=== PATIENT | female | born 1965 | race Caucasian/White ===

== ENCOUNTER 2017-06-29 16:14 | Emergency (ER) | payer OTHER ==
[2017-06-29] MEDS ORDERED: Lactated Ringers 1,000 ML IV ONE (16:40)
--- NOTE | 2017-06-29 16:54 | EDM.PDOC ---
ED HPI GENERAL MEDICAL PROBLEM - General Chief Complaint: Abdominal Pain Stated Complaint: SENT FROM [facility] Time Seen by Provider: 06/29/17 16:39 Source of Information: Reports: Patient History Limitations: Reports: No Limitations - History of Present Illness INITIAL COMMENTS - FREE TEXT/NARRATIVE: 51-year-old female presents for evaluation and treatment of her lower quadrant abdominal pain. Patient reports that the abdominal pain woke her from sleep this morning around 0400. Patient reports that the pain as a dull aching sensation that comes in waves. Currently the pain as a 5 out of 10. She reports associated symptoms of nausea and decreased appetite. Last intake was around 1300, she had half of a pop tart. Patient did drive herself to the ER. She states that movement seems to make the pain worse. She denies any fevers, dysuria, hematuria, vomiting or diarrhea. She states that she is burping more than normal. Not as much flatus is normal. Last bowel movement was this morning. Reports it was looser than normal. Previous abdominal surgeries include a cholecystectomy. Patient reports she does not have a normal menstrual cycle. She ablation done about 10 years ago. Onset: Today Location: Reports: Abdomen Quality: Reports: Dull Severity: Moderate (5/10) Right Abdominal Pain Score (Numeric/FACES): 5 - Related Data Allergies Allergy/AdvReac Type Severity Reaction Status Date / Time seasonal Allergy Hives Uncoded 06/29/17 16:21 Home Meds: Home Meds . [No Known Home Meds] 06/29/17 [History] Past Medical History Respiratory History: Reports: Asthma Social & Family History - Tobacco Use Smoking Status *Q: Never Smoker ED ROS GENERAL - Review of Systems Review Of Systems: See Below Constitutional: Reports: Decreased Appetite. Denies: Fever GI/Abdominal: Reports: Abdominal Pain (RLQ), Decreased Appetite, Nausea. Denies : Vomiting : Reports: No Symptoms. Denies: Dysuria, Hematuria ED EXAM, GI/ABD - Physical Exam Exam: See Below Exam Limited By: No Limitations General Appearance: Alert, WD/WN, No Apparent Distress Ears: Normal External Exam Nose: Normal Inspection Throat/Mouth: Normal Inspection, Normal Voice, No Airway Compromise Neck: Normal Inspection Respiratory/Chest: No Respiratory Distress, Lungs Clear, Normal Breath Sounds Cardiovascular: Normal Peripheral Pulses, Regular Rate, Rhythm, No Murmur GI/Abdominal Exam: Normal Bowel Sounds, Soft, Tender (RLQ, slightly inferior to [place]urn[place] point), Other (- psosas and obturator signs). No: Guarding, Rigid, Rebound Neurological: Alert, Oriented, Normal Cognition Psychiatric: Normal Affect, Normal Mood Skin Exam: Warm, Dry, Normal Color Course - Vital Signs Last Recorded V/S: Last Vital Signs Temp 36.7 C 06/29/17 16:22 Pulse 56 L 06/29/17 16:22 Resp 16 06/29/17 16:22 BP 119/76 06/29/17 16:22 Pulse Ox 100 06/29/17 16:22 - Orders/Labs/Meds Orders: Active Orders 24 hr Category Date Time Status Peripheral IV Care [RC] . DIRECTED Care 06/29/17 16:40 Active Peripheral IV Insertion Adult [OM.PC] Routine Oth 06/29/17 16:40 Ordered Labs: Laboratory Tests 06/29/17 06/29/17 06/29/17 Range/Units 17:00 17:00 17:00 WBC 8.39 (3.98-10.04) K/mm3 RBC 4.19 (3.98-5.22) M/mm3 Hgb 13.2 (11.2-15.7) gm/L Hct 38.6 (34.1-44.9) % MCV 92.1 (79.4-94.8) fl MCH 31.5 (25.6-32.2) pg MCHC 34.2 (32.2-35.5) g/dl RDW Std Deviation 41.6 (36.4-46.3) fL Plt Count 234 (182-369) K/mm3 MPV 9.2 L (9.4-12.3) fl Neutrophils % (Manual) 68 H (40-60) % Band Neutrophils % 0 (0-10) % Lymphocytes % (Manual) 24 (20-40) % Atypical Lymphs % 0 % Monocytes % (Manual) 8 (2-10) % Eosinophils % (Manual) 0 L (0.7-5.8) % Basophils % (Manual) 0 L (0.1-1.2) Platelet Estimate Adequate Plt Morphology Comment Normal RBC Morph Comment Normal Sodium 140 (136-145) mEq/L Potassium 4.1 (3.5-5.1) mEq/L Chloride 106 (98-107) mEq/L Carbon Dioxide 26 (21-32) mEq/L Anion Gap 12.1 (5-15) BUN 12 (7-18) mg/dL Creatinine 0.9 (0.55-1.02) mg/dL Est Cr Clr Drug Dosing 65.29 mL/min Estimated GFR (MDRD) > 60 (>60) mL/min BUN/Creatinine Ratio 13.3 L (14-18) Glucose 105 (74-106) mg/dL Calcium 8.8 (8.5-10.1) mg/dL Total Bilirubin 0.4 (0.2-1.0) mg/dL AST 15 (15-37) U/L ALT 22 (14-59) U/L Alkaline Phosphatase 49 (46-116) U/L C-Reactive Protein < 0.2 (<1.0) mg/dL Total Protein 6.6 (6.4-8.2) g/dl Albumin 3.6 (3.4-5.0) g/dl Globulin 3.0 gm/dL Albumin/Globulin Ratio 1.2 (1-2) HCG, Qual Negative (NEGATIVE) Urine Color (Yellow) Urine Appearance (Clear) Urine pH (5.0-8.0) Ur Specific [place] (1.005-1.030) Urine Protein (Negative) Urine Glucose (UA) (Negative) Urine Ketones (Negative) Urine Occult Blood (Negative) Urine Nitrite (Negative) Urine Bilirubin (Negative) Urine Urobilinogen (0.2-1.0) Ur Leukocyte Esterase (Negative) Urine RBC (0-5) /hpf Urine WBC (0-5) /hpf Ur Epithelial Cells (0-5) /hpf Urine Bacteria (FEW) /hpf Urine Mucus (FEW) /hpf 06/29/17 Range/Units 17:10 WBC (3.98-10.04) K/mm3 RBC (3.98-5.22) M/mm3 Hgb (11.2-15.7) gm/L Hct (34.1-44.9) % MCV (79.4-94.8) fl MCH (25.6-32.2) pg MCHC (32.2-35.5) g/dl RDW Std Deviation (36.4-46.3) fL Plt Count (182-369) K/mm3 MPV (9.4-12.3) fl Neutrophils % (Manual) (40-60) % Band Neutrophils % (0-10) % Lymphocytes % (Manual) (20-40) % Atypical Lymphs % % Monocytes % (Manual) (2-10) % Eosinophils % (Manual) (0.7-5.8) % Basophils % (Manual) (0.1-1.2) Platelet Estimate Plt Morphology Comment RBC Morph Comment Sodium (136-145) mEq/L Potassium (3.5-5.1) mEq/L Chloride (98-107) mEq/L Carbon Dioxide (21-32) mEq/L Anion Gap (5-15) BUN (7-18) mg/dL Creatinine (0.55-1.02) mg/dL Est Cr Clr Drug Dosing mL/min Estimated GFR (MDRD) (>60) mL/min BUN/Creatinine Ratio (14-18) Glucose (74-106) mg/dL Calcium (8.5-10.1) mg/dL Total Bilirubin (0.2-1.0) mg/dL AST (15-37) U/L ALT (14-59) U/L Alkaline Phosphatase (46-116) U/L C-Reactive Protein (<1.0) mg/dL Total Protein (6.4-8.2) g/dl Albumin (3.4-5.0) g/dl Globulin gm/dL Albumin/Globulin Ratio (1-2) HCG, Qual (NEGATIVE) Urine Color Light yellow (Yellow) Urine Appearance Clear (Clear) Urine pH 7.0 (5.0-8.0) Ur Specific [place] 1.015 (1.005-1.030) Urine Protein Negative (Negative) Urine Glucose (UA) Negative (Negative) Urine Ketones Negative (Negative) Urine Occult Blood Negative (Negative) Urine Nitrite Negative (Negative) Urine Bilirubin Negative (Negative) Urine Urobilinogen 0.2 (0.2-1.0) Ur Leukocyte Esterase Negative (Negative) Urine RBC 0-5 (0-5) /hpf Urine WBC 0-5 (0-5) /hpf Ur Epithelial Cells 0-5 (0-5) /hpf Urine Bacteria Few (FEW) /hpf Urine Mucus Not seen (FEW) /hpf Meds: Medications Discontinued Medications Generic Name Dose Route Start Last Admin Trade Name Freq PRN Reason Stop Dose Admin Diatrizoate Meglum/Diatrizoate Sod 90 ml 06/29/17 18:27 06/29/17 18:39 Gastrografin 37% PO 06/29/17 18:28 90 ml ONETIME ONE Administration Lactated Ringer's 1,000 mls @ 999 mls/hr 06/29/17 16:40 06/29/17 17:13 Ringers, Lactated IV 06/29/17 17:40 999 mls/hr .BOLUS ONE Administration Iopamidol 125 ml 06/29/17 18:27 06/29/17 18:40 Isovue-300 (61%) IVPUSH 06/29/17 18:28 125 ml ONETIME ONE Administration Sodium Chloride 10 ml 06/29/17 16:40 06/29/17 18:40 Saline Flush FLUSH 10 ml ASDIRECTED PRN Administration Keep Vein Open - Radiology Interpretation Free Text/Narrative:: CT abdomen and pelvis Technique: Multiple axial sections were obtained slightly below the dome of the diaphragm inferiorly through the pubic symphysis. Intravenous and oral contrast was utilized. Delayed images were also obtained through the bladder. Comparison: No prior abdominal imaging. Findings: Visualized lung bases are clear. Visualized portions of the liver and spleen appears within normal limits. Adrenal glands show no nodule. Kidneys show symmetric contrast enhancement without hydronephrosis or mass. Pancreas is within normal limits. Aorta shows no aneurysmal dilatation. No retroperitoneal adenopathy or mesenteric abnormalities are seen. Appendix not visualized with certainty. 2 cystic structures are seen adjacent to each other within the right lower pelvis which is felt compatible with ovarian cysts measuring 3.4 cm and 3.2 cm which indents the tip of the spleen. No free fluid seen within the pelvis. Additional cyst identified to the left side of midline measuring 3.4 cm likely within the left ovary. Delayed images shows contrast within the distal ureters and within the bladder. Bone window settings were reviewed which appear within normal limits for the patient's age. Impression: 1. 2 right-sided cysts within the pelvis likely within the right ovary measuring 3.4 and 3.2 cm. Cyst within the left side of the pelvis measuring 3.4 cm likely within the left ovary. 2. No free fluid within the pelvis is seen. 3. Appendix is not seen with no indirect evidence of appendicitis. 4. No additional abnormality is appreciated on CT study of the abdomen and pelvis. - Re-Assessments/Exams Free Text/Narrative Re-Assessment/Exam: 06/29/17 17:00 Patient was offered medication for pain upon arrival to the ER. She declined. She also declined any nausea medication. 06/29/17 19:20 I reviewed the labs and imaging with the patient. She has continued to decline pain and nausea medication throughout her ER stay. I will have her follow-up with her PCP in 1-2 weeks. She declined nausea and pain medication to take home. Discharge instructions as documented. Departure - Departure Time of Disposition: 19:25 Disposition: Home, Self-Care 01 Condition: Fair Clinical Impression: Ovarian cyst Qualifiers: Laterality: bilateral Qualified Code(s): N83.201 - Unspecified ovarian cyst, right side - Discharge Information Instructions: Ovarian Cyst, [id number] Referrals: Nayeli Pickard MD [Primary Care Provider] - Forms: ED Department Discharge Additional Instructions: [id number] Tylenol and Motrin as needed for pain relief. You may also use heat for additional pain relief. Follow-up with your primary care provider in 1-2 weeks for a recheck. Please return to the ER if your symptoms change or worsen. - My Orders Last 24 Hours: My Active Orders 06/29/17 16:40 Peripheral IV Care [RC] . DIRECTED Peripheral IV Insertion Adult [OM.PC] Routine - Assessment/Plan Last 24 Hours: My Active Orders 06/29/17 16:40 Peripheral IV Care [RC] . DIRECTED Peripheral IV Insertion Adult [OM.PC] Routine
[2017-06-29] MEDS: Sodium Chloride 0.9% 10 ML Syringe FLUSH PRN ×2 (17:13→18:40)
[2017-06-29] MEDS ORDERED: Diatrizoate Meglumine/Diatrizoate Sodium 37% 120 ML Bottle PO ONE (18:27)
[2017-06-29] MEDS ORDERED: Iopamidol 612 MG/ML 150 ML Bottle IVPUSH ONE (18:27)
--- NOTE | 2017-06-29 19:11 | CT ---
CT abdomen and pelvis Technique: Multiple axial sections were obtained slightly below the dome of the diaphragm inferiorly through the pubic symphysis. Intravenous and oral contrast was utilized. Delayed images were also obtained through the bladder. Comparison: No prior abdominal imaging. Findings: Visualized lung bases are clear. Visualized portions of the liver and spleen appears within normal limits. Adrenal glands show no nodule. Kidneys show symmetric contrast enhancement without hydronephrosis or mass. Pancreas is within normal limits. Aorta shows no aneurysmal dilatation. No retroperitoneal adenopathy or mesenteric abnormalities are seen. Appendix not visualized with certainty. 2 cystic structures are seen adjacent to each other within the right lower pelvis which is felt compatible with ovarian cysts measuring 3.4 cm and 3.2 cm which indents the tip of the spleen. No free fluid seen within the pelvis. Additional cyst identified to the left side of midline measuring 3.4 cm likely within the left ovary. Delayed images shows contrast within the distal ureters and within the bladder. Bone window settings were reviewed which appear within normal limits for the patient's age. Impression: 1. 2 right-sided cysts within the pelvis likely within the right ovary measuring 3.4 and 3.2 cm. Cyst within the left side of the pelvis measuring 3.4 cm likely within the left ovary. 2. No free fluid within the pelvis is seen. 3. Appendix is not seen with no indirect evidence of appendicitis. 4. No additional abnormality is appreciated on CT study of the abdomen and pelvis. Diagnostic code #2
== END 2017-06-29 19:35 | disposition home or self-care (01) ==
LOC: JD.ED 16:14
DX: N83.201 Unspecified ovarian cyst, right side (principal); N83.202 Unspecified ovarian cyst, left side; Z90.49 Acquired absence of other specified parts of digestive tract; Z91.09 Other allergy status, other than to drugs and biological substances
CPT/HCPCS: 36415; 74177; 80053; 81001; 84703; 85025; 86140; 96360; 99284; J7050; J7120; Q9963; Q9967